=== PATIENT | male | born 1945 | race Caucasian/White ===

== ENCOUNTER 2021-07-18 07:18 | Emergency (ER) | payer MEDICARE ==
[2021-07-18 07:42] LABS: BASOPHIL 0.5 % (0-2); EOSINOPHIL 1.5 % (0-7); HCT 35.9 % (42.0-52.0); HGB 11.5 g/dl (13.2-18.0); LYMPHOCYTE 11.3 % (15-48); MCH 29.9 pg (25.0-31.0); MCV 93.5 fL (78.0-100.0); MONOCYTE 13.2 % (0-12); MPV 12.4 fL (6.0-9.5); NEUTROPHIL 73.2 % (41-80); NRBC 0; PLT 176 K/uL (150-400); RBC 3.84 M/uL (4.70-6.00); RDW 13.4 % (11.5-14.0); WBC 7.4 K/uL (4.0-10.5)
[2021-07-18 07:54] LABS: INR 1.03 (0.9-1.2); PROTHROMBIN TIME 12.9 SECONDS (11.8-13.4); PTT 30.3 SECONDS (24.4-34.7)
[2021-07-18 08:14] LABS: ALBUMIN 4.4 g/dL (3.4-5.0); BILIRUBIN - TOTAL 0.4 mg/dL (0.2-1.0); CREATININE 2.68 mg/dL (0.67-1.17); POTASSIUM 4.1 mmol/L (3.5-5.1); TOTAL PROTEIN 7.4 g/dL (6.4-8.2)
[2021-07-18 08:18] LABS: CKMB 6.6 ng/mL (0.0-3.6)
== END 2021-07-18 08:00 | disposition other institution (70) ==
LOC: FER 07:18
PROVIDERS: Emergency Medicine
DX: I21.09 ST elevation (STEMI) myocardial infarction involving other coronary artery of anterior wall (principal); I48.91 Unspecified atrial fibrillation; Z88.8 Allergy status to other drugs, medicaments and biological substances; Z20.822 Contact with and (suspected) exposure to COVID-19
CPT/HCPCS: 36415; 71045; 80053; 82553; 84484; 85025; 85610; 85730; 93005; J1644; J7040; U0002